=== PATIENT | male | born 1970 | race Caucasian/White ===

== ENCOUNTER 2023-01-23 14:52 | Emergency (ER) | payer OTHER, SELFPAY ==
[2023-01-23 15:05] VITALS: BP 113/77; PULSE 86; RESP 18; TEMP 35.6; O2SAT 96; BMI 25.8
--- NOTE | 2023-01-23 15:30 | ED.ANIMALBIT ---
HPI - Animal Bite General Chief Complaint: Animal Bite Stated Complaint: Dog bite R leg Time Seen by Provider: 01/23/23 15:04 History of Present Illness HPI narrative: Patient is a 52-year-old gentleman who was bit by a friend's dog on his right leg and left arm. Left arm is 2 very small punctures forearm. Appear to be non full-thickness an approximately 0.5 cm in diameter each. The dog thing came back and bit him on the right leg with a somewhat of a crush injury to the his gastrocnemius an number of puncture sites well as to skin tears both 3-4 cm in length. Patient is not certain whether he is up-to-date on his tetanus shot. He has a significant amount of discomfort deep to the puncture sites on the right leg. No signs of infection. Pain is moderate. He has no drainage or discharge. No oral otherwise neural muscular and vascular function. Bleeding was treated at the scene with direct pressure. Related Data Previous Rx's Medication Instructions Recorded amoxicillin 875 mg-potassium 1 tab PO Q12H Dog bite #14 tabs 01/23/23 clavulanate 125 mg tablet Allergies Allergy/AdvReac Type Severity Reaction Status Date / Time No Known Drug Allergies Allergy Verified 01/23/23 15:05 Review of Systems Status of ROS: Reports: 10 or more systems reviewed and unremarkable except as noted in History and below Exam Narrative: Exam Narrative: EXAM GENERAL: Patient appears comfortable and well. EYES: No scleral icterus. ENT: Tympanic membranes and oropharynx normal. THYROID: no thyroid nodules or thyromegaly. LYMPH: No supraclavicular or cervical lymphadenopathy. SKIN: Skin tears and dog bite puncture sites as noted above. EXT: No dependent lower extremity pedal edema. HEART: Regular rate and rhythm with no murmurs, rubs, or gallops. LUNGS: Clear to auscultation bilaterally with no crackles or wheezes. ABD: Soft, non tender, non distended. PSYCH: Good eye contact, speech is not pressured. Const: Vital Signs, click to edit/add: Vital Signs - 24 hr 01/23/23 15:05 Temperature 96.1 F L Pulse Rate [Right Pulse Oximeter] 86 Respiratory Rate 18 Blood Pressure [Ri ght Upper Arm] 113/77 Pulse Oximetry 96 Oxygen Delivery Me thod Room Air Course Course Hospital Course: Patient seen examined. Wounds were aggressively irrigated. I have asked General surgery to come see the wounds. They agree that the wound should not be closed. We did dress the wound with Xeroform gauze. Patient's tetanus shot is up-to-date. We did explain wound care. And recommended follow-up. In addition, I did place him on Augmentin 875 p.o. b.i.d. for the next 7 days. Tylenol Motrin rest fluids recommended. Please have been contacted in the dog is being isolated. Vital Signs Vital signs: Initial Vital Signs Temperature 96.1 F L 01/23/23 15:05 Temperature Source Temporal Artery Scan 01/23/23 15:05 Pulse Rate 86 01/23/23 15:05 Respiratory Rate 18 01/23/23 15:05 Blood Pressure 113/77 01/23/23 15:05 Blood Pressure Mean 89 01/23/23 15:05 Blood Pressure Position Sitting 01/23/23 15:05 Pulse Oximetry 96 01/23/23 15:05 Oxygen Delivery Method Room Air 01/23/23 15:05 Vital Signs Temperature 96.1 F L 01/23/23 15:05 Pulse Rate 86 01/23/23 15:05 Respiratory Rate 18 01/23/23 15:05 Blood Pressure 113/77 01/23/23 15:05 Pulse Oximetry 96 01/23/23 15:05 Oxygen Delivery Method Room Air 01/23/23 15:05 Temperature 96.1 F L 01/23/23 15:05 Pulse Rate 86 01/23/23 15:05 Respiratory Rate 18 01/23/23 15:05 Blood Pressure 113/77 01/23/23 15:05 Pulse Oximetry 96 01/23/23 15:05 Oxygen Delivery Method Room Air 01/23/23 15:05 MDM - Animal Bite Differential Diagnosis Differential diagnosis: Likely dog bite and rabies contact Discharge Plan Discharge Clinical Impression: Bite by animal Patient Disposition: Home, Self-Care Condition: Stable Instructions: Animal Bite (ED) Additional Instructions: Daily dressing changes. Augmentin as directed. Follow-up with your doctor as needed. Activity Level: No Restrictions Discharge Diet: Regular Prescriptions: New amoxicillin-pot clavulanate 875-125 mg tablet 1 tab PO Q12H Qty: 14 0RF Stand Alone Forms: My[employer] Info Instructions
--- NOTE | 2023-01-23 15:45 | ED.NURSE ---
PD arrived to patient room at 1534.
--- NOTE | 2023-01-23 16:03 | ED.NURSE ---
PD left patient room at approximately 1550.
--- NOTE | 2023-01-23 16:16 | ED.NURSE ---
Information of dog coding analyst from patient: Marilee Lopez. . Certified Orthoptist lives on [facility]. Information already given to PD.
--- NOTE | 2023-01-23 16:16 | PM.GSCN ---
History of Present Illness Consult details Date Seen: 01/23/23 Consult date: 01/23/23 Narrative: The patient is a 52-year-old male who was headed to his friend's house to go golfing this afternoon when the dog bit him in the left arm and then ran away. When the dog came back he bit him on the right leg. His arm is not particularly painful, however his leg is somewhat painful with movement. There was some oozing from the wounds. He has no numbness or tingling in his foot. It does hurt to flex and extend his foot. I was asked to see this patient because of concern for muscle hematoma. His wounds were irrigated by the ED staff. He is otherwise healthy with no major comorbidities. 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 Meds Home Medications and Allergies Allergies Allergy/AdvReac Type Severity Reaction Status Date / Time No Known Drug Allergies Allergy Verified 01/23/23 15:05 Exam Narrative: Exam Narrative: General: No acute distress CV: Regular rate Respiratory: Breathing nonlabored on room air Neuro: Exam slightly limited by pain, however patient able to flex and extend his foot. No paresthesias. Extremities: Pedal pulses present. Multiple wounds noted on the right lateral and posterior calf. The largest measures 3 cm. The next largest is 1.5 cm and is located posteriorly. There are 4 other punctate wounds noted. There is no erythema. There is minimal bleeding noted at this time. The wounds appear clean. Calf muscle is soft with no signs of compartment syndrome. There is an area of firmness between the bite negron laterally measuring between 4-6 cm which likely represents hematoma, however this is not expanding and the skin overlying is not tense. Right arm with 2 small punctate wounds. Const: Vital Signs, click to edit/add: Vital Signs - 24 hr 01/23/23 15:05 Temperature 96.1 F L Pulse Rate [Right Pulse Oximeter] 86 Respiratory Rate 18 Blood Pressure [Ri ght Upper Arm] 113/77 Pulse Oximetry 96 Oxygen Delivery Me thod Room Air Results Labs Labs: All other labs normal. Assessment and Plan Assessment and plan (1) Bite by animal: Status: Acute Plan The patient is a 52-year-old male with a dog bite to the right arm and the left lower leg. Wounds were left open. I a covered them with xeroform and a bandage. I instructed the patient on how to change the dressing and that he should cover them with xeroform until they are scabbed over. He was provided with leftover dressing supplies. He may take the dressing off and shower daily. I recommended a compression wrap for swelling. I told him to avoid soaking or swimming until the wounds are healed. He should elevate and ice his leg. If he develops worsening swelling, redness or pain he should return to be seen. He was given antibiotics and his tetanus shot is up-to-date.
== END 2023-01-23 16:17 | disposition home or self-care (01) ==
LOC: ED 16:16
PROVIDERS: Emergency Provider Internal Medicine
DX: S41.152A Open bite of left upper arm, initial encounter (principal); S81.851A Open bite, right lower leg, initial encounter; W54.0XXA Bitten by dog, initial encounter
CPT/HCPCS: 99283

== ENCOUNTER 2025-05-17 08:05 | Emergency (ER) | payer OTHER, SELFPAY ==
--- OUTSIDE RECORDS SUMMARY | 2025-05-17 08:08 | XMS_ITS | Clinical Summary ---
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 Name Role Phone Pcp, No Primary Care Provider Unavailabl e Allergies No known active allergies Medications No known medications Immunizations ImmunizationAdministration DatesNext DueInfluenza Virus, Awlpyrdtzeu59/21/2020 Influenza, IIV3 (Age 6-35 mos)03/20/2017Influenza, [id number]/19/2017 Social History Tobacco UseTypesPacks/DayYears UsedDateSmoking Tobacco: NeverSmokeless Tobacco: NeverAlcohol UseStandard Drinks/WeekCommentsYes0 (1 standard drink = 0.6 oz pure alcohol)Social ConnectionsAnswerDate RecordedFrequency of Communication with Friends and FamilyNot on file05/27/2021Financial Resource StrainAnswerDate RecordedDifficulty of Paying Living ExpensesNot on file05/27/2021ifficulty of Paying Living ExpensesNot on file05/27/2021ex and Gender InformationValueDate RecordedSex Assigned at BirthNot on fileLegal DzgEpvt5206/27/2020 1:21 PM DONOR SPECIALIST Gender IdentityNot on fileSexual OrientationNot on file Last Filed Vital Signs Vital SignReadingTime TakenCommentsBlood Egcykocl967/77006/27/2020 1:45 PM DONOR SPECIALIST Ckmlx206906/27/2020 1:45 PM MFQKelcurzijjz35.8 ??C (98.2 ??F)06/27/2020 1:45 PM CSTRespiratory Rate--Oxygen Ixncfaobxo36%06/27/2020 1:45 PM CSTInhaled Oxygen Concentration--Ducyfw63.1 kg (209 lb 9.6 oz)06/27/2020 1:45 PM LNJRzgcob629.3 cm (5' 11.77)06/27/2020 1:45 PM CSTBody Mass Index28.61006/27/2020 1:45 PM DONOR SPECIALIST Plan of Treatment Health MaintenanceDue DateLast DoneCommentsDepression screening for age 12+ 1981HIV for age 15-6505/30/1984Hepatitis C screening for age 18-79 1987Hepatitis B series for 19+ (1 of 3 - 19+ 3-dose series)1988 Colonoscopy through age 7505/30/2014Lipids for age 45-Pneumococcal series for age 50+ (1 of 1 - PCV)2019Zoster (shingles) series for age 50+ (1 of 2)2019BMI (ht and wt on same day) for age 18+/ COVID-19 vaccine series ( season)/08/2021, 04/11/2021, 08/31/2020, Additional history existsInfluenza Vaccine (#1)512/, 03/14/2019, 03/20/2017Tetanus hpypdrp09/RSV vaccine for adults or (1 - 1-dose 75+ series)2044 Insurance Care Teams Team MemberRelationshipSpecialtyStart DateEnd Date Juanita Perera - General06/27/20
[2025-05-17 08:33] VITALS: BP 141/89; PULSE 59; RESP 24; O2SAT 99; BMI 26.4
--- NOTE | 2025-05-17 08:36 | CRLHL7_ITS ---
For Patients: As a result of the Cures Act, medical imaging exams and procedure reports are released immediately into your electronic medical record. You may view this report before your referring provider. If you have questions, please contact your health care provider. Indication: Status post fall. Shoulder pain. Technique: Two views Comparison: None. Findings: Anterior inferior dislocation of the humeral head in relation to the glenoid. Suboptimal views were obtained. There is a questionable deformity of the humeral head which could be concerning for underlying fracture. Additional radiographs can be performed for further evaluation. At least moderate degenerative changes of the acromioclavicular joint. Dictated by Perez Massey MD @ 05/17/2025 9:21:59 AM (Electronically Signed)
--- NOTE | 2025-05-17 08:43 | ED_ITS ---
HPI - General Adult General Chief complaint: Fall/Minor Trauma Stated complaint: fell on L shldr Time Seen by Provider: 05/17/25 08:42 Source: patient Mode of arrival: ambulatory Limitations: no limitations History of Present Illness HPI narrative: [age] year male coming in today complaining of shoulder pain. Patient tripped over a dog bed and fell forward landing on an outstretched arm. He felt pain in his shoulder right away and has not been able to move his shoulder since. Did not hit his head or lose consciousness. He denies any pain in the elbow or wrist. Patient is not anticoagulated. patient is generally healthy, takes no medications. He ate 5 minutes before falling. 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 Exam Narrative: Exam Narrative: Well-nourished well-developed patient , obviously uncomfortable.Alert and oriented. Answers questions appropriately. Mood and affect are appropriate. Thoughts are goal oriented and rational. No tangential or magical thinking noted. Patient speaks in full sentences without needing to catch His breath. HEENT: Normocephalic atraumatic. Pupils are equally round reactive to light. Extraocular muscles are intact. Conjunctivae are moist without any icterus noted. Moist mucous membranes. normal posterior pharynx. Cardiovascular: Heart is regular rate and rhythm S1 and S2 are present without any murmurs. Lungs: Clear to auscultation bilaterally no wheezes rhonchi or rales are appreciated. Patient takes deep breaths without any discomfort. Extremities: Shoulder is clearly dislocated with a large sulcus present. No tenderness or swelling at the wrist or elbow. Normal radial pulse. Normal hand welfare adviser, normal sensation. Skin: Well perfused without any obvious rashes. Const: Vital Signs, click to edit/add: Vital Signs - 24 hr 05/17/25 08:33 Pulse Rate [Pulse Oximeter] 59 L Respiratory Rate 24 Blood Pressure [Ri ght Upper Arm] 141/89 H Pulse Oximetry 99 Oxygen Delivery Me thod Room Air Course Course ED Course: X-ray of the shoulder showed a questionable humeral head fracture, an obvious dislocation. Given that the patient just eaten prior to arriving to the ED, did consult with anesthesia and they performed a suprascapular nerve block. Procedure: Dislocated shoulder reduction. With flexion and external rotation the shoulder was easily reduced. Repeat x-rays given the abnormality noted on the initial x-ray does not show a humeral head fracture. Vital Signs Vital signs: Initial Vital Signs Pulse Rate 59 L 05/17/25 08:33 Respiratory Rate 24 05/17/25 08:33 Blood Pressure 141/89 H 05/17/25 08:33 Blood Pressure Mean 106 H 05/17/25 08:33 Blood Pressure Position Supine 05/17/25 08:33 Pulse Oximetry 99 05/17/25 08:33 Oxygen Delivery Method Room Air 05/17/25 08:33 Vital Signs Pulse Rate 59 L 05/17/25 08:33 Respiratory Rate 24 05/17/25 08:33 Blood Pressure 141/89 H 05/17/25 08:33 Pulse Oximetry 99 05/17/25 08:33 Oxygen Delivery Method Room Air 05/17/25 08:33 Pulse Rate 59 L 05/17/25 08:33 Respiratory Rate 24 05/17/25 08:33 Blood Pressure 141/89 H 05/17/25 08:33 Pulse Oximetry 99 05/17/25 08:33 Oxygen Delivery Method Room Air 05/17/25 08:33 Medications Administered Medications: Discontinued Medications Generic Name Dose Route Start Last Admin Trade Name Freq PRN Reason Stop Dose Admin Fentanyl 50 mcg 05/17/25 08:42 05/17/25 08:51 Fentanyl 100 Mcg/2 Ml Inj IVP 05/17/25 08:43 50 mcg ONCE ONE Administration Medical Decision Making MDM Narrative Medical decision making narrative: 54-year-old male status post Anterior shoulder dislocation, reduced without difficulty. Patient will be placed in a shoulder sling and follow-up with orthopedic surgery. Imaging Data Pre reduction shoulder: Attestation: I have reviewed the pertinent imaging results. Radiologist's impression: Technique: Two views Comparison: None. Findings: Anterior inferior dislocation of the humeral head in relation to the glenoid. Suboptimal views were obtained. There is a questionable deformity of the humeral head which could be concerning for underlying fracture. Additional radiographs can be performed for further evaluation. At least moderate degenerative changes of the acromioclavicular joint. postreduction shoulder: Attestation: I have reviewed the pertinent imaging results. Radiologist's impression: Technique: Left shoulder 3 views. Comparison: 05/17/2025 Findings: Interval reduction of glenohumeral dislocation. No acute fracture. Chronic deformity of the greater tuberosity with extensive subcortical degenerative cystic change. Impression: Reduction of glenohumeral dislocation. Discharge Plan Discharge Clinical Impression: Anterior shoulder dislocation Patient Disposition: Home, Self-Care Condition: Stable Instructions: How to Use a Sling (ED) Additional Instructions: Wear sling at all times. Can remove when you go to sleep. Follow-up with orthopedics within 1 week. Okay to use ibuprofen or Tylenol as needed/ as directed for pain management. Prescriptions: No Action No Known Home Medications Follow Up/Referrals: Provider,Not a Local [Primary Care Provider, Family Practice] Stand Alone Forms: [employer] Info Instructions
--- NOTE | 2025-05-17 09:24 | W.PM.NB ---
Nerve Block Nerve Block Time Seen by Provider: 09:08 Date Seen: 05/17/25 Type of block requested by surgeon for post-operative analgesia: supraclavicular Side: left Time out performed: Yes Verification of patient name: Yes Verification of date of : Yes Site marking: site marked Name of person performing procedure: Benji Continuous monitoring Was continuous monitoring of O2 sat, B/P, monitoring and evaluation advisor, recorded every 15 minutes?: Yes Procedure Checklist: sterile prep, needles and gloves Ultrasound guided. Images saved: Yes Medications given in 5ml increments after negative aspiration: Ropivicaine %: 0.5 mL: 15 Needle gauge: 22 Precedex (mcg): 25 Patient tolerated procedure well: Yes Additional comments: Patient with dislocated shoulder just after eating breakfast. Block performed without sedation to facilitate closed reduction. Block Charges Block Charge (with Pro Fee): Brachial Plexus Use of Ultrasound Machine for Block: Yes- US Guidance/pain block
--- NOTE | 2025-05-17 09:27 | CRLHL7_ITS ---
For Patients: As a result of the Century Cures Act, medical imaging exams and procedure reports are released immediately into your electronic medical record. You may view this report before your referring provider. If you have questions, please contact your health care provider. Indication: post reduction Technique: Left shoulder 3 views. Comparison: 05/17/2025 Findings: Interval reduction of glenohumeral dislocation. No acute fracture. Chronic deformity of the greater tuberosity with extensive subcortical degenerative cystic change. Impression: Reduction of glenohumeral dislocation. Dictated by Riki Kessler MD @ 05/17/2025 9:48:02 AM (Electronically Signed)
== END 2025-05-17 11:30 | disposition home or self-care (01) ==
PROVIDERS: Emergency Provider Family Medicine
DX: S43.015A Anterior dislocation of left humerus, initial encounter (principal); W18.09XA Striking against other object with subsequent fall, initial encounter
CPT/HCPCS: 23655; 73030; 76942; 99285; J3010